=== PATIENT | female | born 1955 | race Caucasian/White ===

== ENCOUNTER 2021-06-19 12:47 | Outpatient (CLI) | payer MEDICARE ==
--- NOTE | 2021-06-19 13:21 | XRAY Report ---
PROCEDURE: Hand 3 View RT INDICATIONS: HAND PAIN, RIGHT TECHNIQUE: 3 views of the hand(s) acquired. COMPARISON: None FINDINGS: Bones: No fractures or dislocations. No suspicious bony lesions. Soft tissues: No suspicious soft tissue calcifications. 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 A small accessory ossicle or old avulsion fragment is incidentally noted at the radial bor janie of the trapezium, perhaps reflecting old trauma in that area. Reviewed by: Rell Pastrana MD on 06/19/2021 1:19 PM PDT Approved by: Rell Pastrana MD on 06/19/2021 1:19 PM PDT Station ID: [id number]
== END 2021-06-19 23:59 | disposition home or self-care (01) ==
LOC: DI.N 12:47
PROVIDERS: ATTEND Family Medicine
DX: M19.041 Primary osteoarthritis, right hand (principal)

== ENCOUNTER 2022-08-27 08:00 | Outpatient (CLI) | payer MEDICARE ==
[2022-08-27 17:37] LABS: HCT - HEMATOCRIT 38.7 % (37.0-47.0); HGB - HEMOGLOBIN 12.4 g/dL (12.0-16.0); MEAN CORPUSCULAR HEMOGLOBIN 31.4 pg (27.0-31.0); MEAN PLATELET VOLUME 9.7 fL (7.9-10.8); RED BLOOD COUNT 3.95 10^6/uL (4.20-5.40); RED CELL DISTRIBUTION WIDTH 13.4 % (12.0-15.0); WHITE BLOOD COUNT 5.6 x10^3/uL (4.8-10.8)
[2022-08-27 18:10] LABS: ALBUMIN 3.9 g/dL (3.2-5.5); ALBUMIN/GLOBULIN RATIO 1.1 (1.0-2.2); ALKALINE PHOSPHATASE 46 IU/L (42-121); ALT ALANINE AMINOTRANSFERASE 30 IU/L (10-60); AST ASPARTATE AMINOTRANSFERASE 25 IU/L (10-42); BILIRUBIN,TOTAL 0.6 mg/dL (0.2-1.0); BUN - BLOOD UREA NITROGEN 10 mg/dL (6-20); CALCIUM 8.9 mg/dL (8.5-10.3); CARBON DIOXIDE - CO2 28 mmol/L (21-32); CHLORIDE 100 mmol/L (101-111); CHOL/HDL RATIO 5.2 (<4.4); CHOLESTEROL 220 mg/dL; CREATININE 0.5 mg/dL (0.4-1.0); GFR - MDRD 123 (>89); GLUCOSE 98 mg/dL (70-100); HDL CHOLESTEROL 42 mg/dL; LDL CHOLESTEROL,CALCULATED 147 mg/dL; LDL/HDL RATIO 3.5 (<4.4); POTASSIUM 4.2 mmol/L (3.5-5.0); SODIUM 134 mmol/L (135-145); TOTAL PROTEIN 7.3 g/dL (6.7-8.2); TRIGLYCERIDES 157 mg/dL; VLDL CHOLESTEROL 31 mg/dL
[2022-08-27 20:16] LABS: ESTIMATED AVERAGE GLUCOSE 134 mg/dL (70-100); HEMOGLOBIN A1c% 6.3 % (4.27-6.07)
== END 2022-08-27 23:59 | disposition home or self-care (01) ==
LOC: LAB.N 08:00
PROVIDERS: ATTEND Physician Assistant Medical
DX: E11.9 Type 2 diabetes mellitus without complications (principal)
CPT/HCPCS: 36415; 80053; 80061; 83036; 83721; 84443; 85027

== ENCOUNTER 2023-02-24 13:08 | Outpatient (CLI) | payer MEDICARE ==
--- NOTE | 2023-02-24 14:19 | SLEEP CARE CONSULTATION ---
Information from patient questionnaire entered by Lisseth Brown. I have reviewed and concur with the information entered by Lisseth Brown. This document represents the service I personally performed and the decisions made by me, Cecy Jernigan ARNP. History of Present Illness Service Date and Time: 02/24/2023 1308 Reason for Visit: New patient, sleep apnea on CPAP therapy Chief Complaint: reports: Unrefreshed sleep, Snoring, Frequent awakenings at night, Other (UPDATE SUPPLIES) Date of Onset: A WHILE Usual bedtime: 10PM-430AM Time it takes to fall asleep: 5-10MINS Snores at night: Yes Observed to quit breathing while asleep: Yes Number of times waking at night: 1-2 Reasons for waking at night: reports: Snoring, Bathroom Toss, Turn, or Twitch while sleeping: Yes Recalls having dreams: Yes Usually gets out of bed at: 830AM Feels refreshed in the morning: No Morning headache: No Sleepy or fatigued during the day: Yes Ever fallen asleep while driving: No Takes day naps: No Dreams during day naps: No Prior sleep studies: Yes Year and Where: [facility] Additional HPI information: VERONICA THOMASON was previously diagnosed to have unknown, AHI unknown, sleep apnea- hypopnea syndrome and comes in today to establish care for CPAP therapy. - Parasomnia Symptoms Ever been unable to move upon waking from sleep: No Walks in sleep: No Talks in sleep: No Ever acted out dreams in sleep: No Ever felt weak in the knees when startled or emotional: No Bothered by creepy, crawly, restless sensations in legs: No CPAP Compliance Data - Data Reviewed with Patient Average duration of nightly device use: 4 hours 50 minutes Compliance rate %: 57 (78/90 days used) Current pressure setting (cmH2O): 8 Average residual AHI: 0.6 Central apnea: 0.2 Obstructive apnea: 0.3 Average large leak: 0 Compliance data discussion: She has a Resmed Airsense 10 that was set up in 08/2021. She has been getting her supplies from [facility]. She has not been getting supplies since she moved to [place] about 2 years ago. She is using a Resmed Dobbins FX. Subjective Missed days of use due to: reports: mask issues (air leaking into eyes) Patient concerns: reports: air blowing in eyes (she is using a sleeping mask with good results; using eye drops). denies: aerophagia, mask discomfort, mask leak noise, condensation in mask/hose, nasal congestion, dry mouth, nose, throat, epistaxis Observed to snore while using device: No Current pressure setting perceived as: comfortable On therapy, patient: reports: sleeping better, awakening more refreshed, being more awake and alert during the day, more rested overall. denies: drowsiness while driving Initial [place] Sleepiness Scale score: 6 (02-08-23) Past Medical History Past Medical History: reports: Diabetes, GERD, Other (Hypertrophic cardiomyopathy) Social History The patient's occupation is a RE. Patient is / and lives in [place]. Have you smoked in the past 12 months: No Alcohol use: No Caffeine use: Yes Caffeine amount and frequency: ONE A DAY Family History Family history of sleep disordered breathing: Yes Family Hx Sleep Apnea: Mother: Snoring, Father: Snoring Allergies and Home Medications Known drug allergies: Yes (codeine, morphine, penicillin, shellfish derived) Drug allergies reviewed: Yes Home medication list reviewed: Yes (see updated list in EMR) Review of Systems Cardiovascular: reports: irregular heart rate or pulse Gastrointestinal: denies: heartburn Neurological: denies: headaches Psychiatric: denies: anxiety, depression Immunologic: reports: sneezing, allergies to food or environment (nuts, shellfish derived) Physical Exam Vital signs obtained and entered by: LISSETH Ugarte MA Blood Pressure: 128/60 (LEFT ARM) Cuff size: regular Heart Rate: 65 O2 Saturation: 98 Height: 4 ft 11 in Weight: 155 lb 12.8 oz Body Mass Index: 31.4 BMI Classification: Obese Neck circumference: 16.5 Impression and Plan 1. Obstructive Sleep Apnea-Hypopnea Syndrome, unknown, with fair treatment compliance and good apnea control. On CPAP therapy, the patient has better sleep quality and is more rested overall. Patient needs to be set up with a company for her CPAP supplies. She wants to change her mask to a Dreamwear nasal pillows mask, size small. I will add a mask fitting to her DME prescription. For patient supply concerns, I will have my student life coordinator inform of DME options. A DWO prescription will then be made. Patient advised to contact this office if further supply problems. Patient's apnea severity and rationale for treatment to reduce apnea, improve sleep quality and reduce cardiovascular and cerebrovascular events was reviewed. I also reviewed the benefit of consistent device use of CPAP for cardiac disease and diabetes. 2. Obesity, unspecified. Currently patients BMI is 31.4. Obesity increases the risk of apnea, CPAP pressure requirements and overall health risks especially cardiovascular and diabetes. Thus patient is advised to lose weight. * Continue CPAP pressure at 8 cmH2O * Update supplies * Transfer DME * mask fitting for a Dreamwear nasal pillows mask * Notify me if snoring with mask or feeling that the pressure is too much or too little * Attempt to lose weight * Call this office if any problems using CPAP * Return for follow up in 1-2 months, or sooner if concerns arise Counseling Topics: Spare mask, Weight loss health impact Visit Type: In Office Time Spent with Patient (minutes): 38 Provider Statement: I spent 100% of the Face to Face Visit with the patient with greater than 50% spent counseling the patient and coordination of care.
[2023-02-24 14:21] VITALS: BP 128/60
== END 2023-02-24 13:09 | disposition home or self-care (01) ==
LOC: SC 13:08
PROVIDERS: ATTEND Nurse Practitioner Family
DX: G47.33 Obstructive sleep apnea (adult) (pediatric) (principal); E66.9 Obesity, unspecified; Z68.31 Body mass index [BMI] 31.0-31.9, adult
CPT/HCPCS: 99203; G0463; 99212

== ENCOUNTER 2023-04-27 13:07 | Outpatient (CLI) | payer MEDICARE ==
--- NOTE | 2023-04-27 13:44 | Sleep Patient Instructions ---
Sleep Center Visit Summary - Patient Visit Information Reason for Visit: First compliance visit with CPAP therapy - Patient Instructions Additional Instructions: You were here for follow up of CPAP therapy. You will be continued on CPAP therapy with pressure at 8 cmH2O. You should follow up with sleep care in 12 months. You may contact us sooner for any questions or concerns. - Clinic Information Contact: [facility] [address] [place] [address] [email or web address] T: [phone]
--- NOTE | 2023-04-27 13:51 | SLEEP CARE CONSULTATION ---
Information from patient questionnaire entered by Lisseth Brown. I have reviewed and concur with the information entered by Lisseth Brown. This document represents the service I personally performed and the decisions made by me, Cecy Jernigan ARNP. History of Present Illness Service Date and Time: 04/27/2023 1307 Previous diagnosis: Mild, Obstructive Sleep Apnea-Hypopnea Syndrome AHI: 5.3 (in 2013) Reason for follow up: first compliance after device update Equipment type: CPAP (RESMED Airsense 10, s/u 02/2023 SD CARD NEEDED) Equipment obtained from: Other ([facility]; got initial supplies) Mask style: Nasal pillows Mask brand: Respironics (Dreamwear, medium headgear with small pilows cushion) Backup mask available: Yes (old mask) Last cushion change: 1 month Prior sleep studies: Yes Year and Where: [facility] HPI additional information: VERONICA THOMASON was diagnosed to have mild, AHI 5.3, obstructive sleep apnea- hypopnea syndrome and returned today for CPAP therapy two month/first compliance with new device follow-up. Sleep Study - Results Prior sleep studies: Yes Year and Where: [facility] CPAP Compliance Data - Data Reviewed with Patient Average duration of nightly device use: 5 hours 25 minutes Compliance rate %: 76 (40/41 days used) Current pressure setting (cmH2O): 8 Average residual AHI: 1.1 Central apnea: 0.1 Obstructive apnea: 0.7 Average large leak: 0.9 lpm Subjective Missed days of use due to: reports: mask issues Patient concerns: reports: air blowing in eyes, nasal congestion (allergies). denies: aerophagia, mask discomfort, mask leak noise, condensation in mask/hose, dry mouth, nose, throat, epistaxis Observed to snore while using device: Yes (mouth open sometimes with pressure buildup) Current pressure setting perceived as: comfortable On therapy, patient: reports: sleeping better, awakening more refreshed, being more awake and alert during the day, more rested overall. denies: drowsiness wh ile driving Initial [place] Sleepiness Scale score: 6 (02-08-23) Current [place] Sleepiness Scale score: 3 (04/27/23) Allergies and Home Medications Known drug allergies: Yes (as listed) Drug allergies reviewed: Yes Home medication list reviewed: Yes (no changes) Allergy and home medication list: Allergies codeine Allergy (Verified 04/26/23 09:57) morphine Allergy (Verified 04/26/23 09:57) nut - unspecified Allergy (Verified 04/26/23 09:57) Penicillins Allergy (Verified 04/26/23 09:57) shellfish derived Allergy (Verified 04/26/23 09:57) Review of Systems Review of systems same as previous: Yes (no changes) Physical Exam Vital signs obtained and entered by: LISSETH Ugarte MA Blood Pressure: 124/72 (LEFT ARM) Cuff size: regular Heart Rate: 70 O2 Saturation: 97 Height: 4 ft 11 in Weight: 156 lb 12.8 oz Body Mass Index: 31.6 BMI Classification: Obese Impression and Plan 1. Obstructive Sleep Apnea-Hypopnea Syndrome, mild, with good treatment compliance and good apnea control. On CPAP therapy, the patient has better sleep quality and is more rested overall. Patient has significant improvement of their sleep apnea and is satisfied with current CPAP therapy. Patient tells me she has noticed that her blood sugars and heart rate are better with using her new CPAP. She had questions about the fit of her mask and I was able to help her fit her small nasal pillows cushion into the medium headgear and this was more comfortable for her than the small headgear. We will followup with her next year. Patient's apnea severity and rationale for treatment to reduce apnea, improve sleep quality and reduce cardiovascular and cerebrovascular events was reviewed. I also reviewed the benefit of consistent device use of CPAP for diabetes, gastric reflux and cardiac disease. 2. Obesity, unspecified. Currently patients BMI is 31.6. Obesity increases the risk of apnea, CPAP pressure requirements and overall health risks especially cardiovascular and diabetes. Thus patient is advised to lose weight. * Continue CPAP pressure at 8 cmH2O * Notify me if snoring with mask or feeling that the pressure is too much or too little * Attempt to lose weight * Call this office if any problems using CPAP * Return for follow up in 1 year, or sooner if concerns arise Counseling Topics: Spare mask, Weight loss health impact Visit Type: In Office Time Spent with Patient (minutes): 24 Provider Statement: I spent 100% of the Face to Face Visit with the patient with greater than 50% spent counseling the patient and coordination of care.
[2023-04-27 13:54] VITALS: BP 124/72
== END 2023-04-27 13:08 | disposition home or self-care (01) ==
LOC: SC 13:07
PROVIDERS: ATTEND Nurse Practitioner Family
DX: G47.33 Obstructive sleep apnea (adult) (pediatric) (principal); E66.9 Obesity, unspecified; Z68.31 Body mass index [BMI] 31.0-31.9, adult
CPT/HCPCS: 99213; G0463; 99212

== ENCOUNTER 2023-05-20 09:00 | Outpatient (CLI) | payer MEDICARE | END 2023-05-20 09:01 | disposition home or self-care (01) | LOC: DI 09:00 | PROVIDERS: ATTEND Internal Medicine Cardiovascular Disease | DX: I42.2 Other hypertrophic cardiomyopathy (principal) | CPT/HCPCS: 93306 ==

== ENCOUNTER 2023-05-24 11:30 | Outpatient (CLI) | payer MEDICARE ==
--- NOTE | 2023-05-24 16:45 | XRAY Report ---
PROCEDURE: Ankle 3 View RT INDICATIONS: ANKLE JOINT PAIN TECHNIQUE: 3 views of the ankle were acquired. COMPARISON: None. FINDINGS: Bones: No fractures or dislocations. Ankle mortise is normally aligned. No suspicious bony lesions . Soft tissues: No tibiotalar joint effusion. Achilles tendon appears normal. IMPRESSION: No acute fracture. No osseous lesion. If symptoms and/or clinical suspicion for pathology continue, f urther assessment with repeat plain films, or advanced imaging (e.g., CT, MRI, or bone scan) is recom mended for further assessment. Reviewed by: Corona Uriostegui MD on 05/24/2023 4:44 PM PDT Approved by: Corona Uriostegui MD on 05/24/2023 4:44 PM PDT Station ID: [id number]
--- NOTE | 2023-05-24 16:46 | XRAY Report ---
PROCEDURE: Foot 3 View RT INDICATIONS: PAIN IN RIGHT FOOT TECHNIQUE: 3 views of the foot were acquired. COMPARISON: None. FINDINGS: Bones: No fractures or dislocations. No suspicious bony lesions. Soft tissues: No suspicious soft tissue calcifications or masses. IMPRESSION: No acute fracture. No osseous lesion. If symptoms and/or clinical suspicion for pathology continue, f urther assessment with repeat plain films, or advanced imaging (e.g., CT, MRI, or bone scan) is recom mended for further assessment. Reviewed by: Corona Uriostegui MD on 05/24/2023 4:45 PM PDT Approved by: Corona Uriostegui MD on 05/24/2023 4:45 PM PDT Station ID: [id number]
== END 2023-05-24 11:45 | disposition home or self-care (01) ==
LOC: DI.N 11:30
PROVIDERS: ATTEND Registered Nurse
DX: M25.571 Pain in right ankle and joints of right foot (principal); M79.671 Pain in right foot

== ENCOUNTER 2023-07-05 09:13 | Outpatient (CLI) | payer MEDICARE ==
[2023-07-05 09:27] LABS: BASOPHILS # (AUTO) 0.1 10^3/uL (0.0-0.1); BASOPHILS % (AUTO) 1.3 %; EOSINOPHILS # (AUTO) 0.4 10^3/uL (0.0-0.7); EOSINOPHILS % (AUTO) 7.8 %; HCT - HEMATOCRIT 38.5 % (37.0-47.0); LYMPHOCYTES # (AUTO) 2.2 10^3/uL (1.5-3.5); LYMPHOCYTES % (AUTO) 41.7 %; MEAN CORPUSCULAR HEMOGLOBIN 32.3 pg (27.0-31.0); MEAN CORPUSCULAR HGB CONC 33.8 g/dL (32.0-36.0); MEAN CORPUSCULAR VOLUME 95.5 fL (81.0-99.0); MEAN PLATELET VOLUME 8.8 fL (7.9-10.8); MONOCYTES # (AUTO) 0.5 10^3/uL (0.0-1.0); MONOCYTES % (AUTO) 10.2 %; NEUTROPHILS # (AUTO) 2.1 10^3/uL (1.5-6.6); NEUTROPHILS % (AUTO) 38.8 %; PLT - PLATELET COUNT 241 10^3/uL (130-450); RED BLOOD COUNT 4.03 10^6/uL (4.20-5.40); RED CELL DISTRIBUTION WIDTH 13.4 % (12.0-15.0); WHITE BLOOD COUNT 5.3 x10^3/uL (4.8-10.8)
[2023-07-05 09:45] LABS: ALBUMIN 4.3 g/dL (3.2-5.5); ALBUMIN/GLOBULIN RATIO 1.3 (1.0-2.2); ALKALINE PHOSPHATASE 50 IU/L (42-121); ALT ALANINE AMINOTRANSFERASE 54 IU/L (10-60); AST ASPARTATE AMINOTRANSFERASE 36 IU/L (10-42); BILIRUBIN,TOTAL 0.6 mg/dL (0.2-1.0); BUN - BLOOD UREA NITROGEN 9 mg/dL (6-20); CALCIUM 9.7 mg/dL (8.5-10.3); CARBON DIOXIDE - CO2 34 mmol/L (21-32); CHLORIDE 98 mmol/L (101-111); CHOL/HDL RATIO 4.8 (<4.4); CHOLESTEROL 215 mg/dL; CREATININE 0.5 mg/dL (0.6-1.3); GFR - MDRD 122 (>89); GLUCOSE 128 mg/dL (74-104); HDL CHOLESTEROL 45 mg/dL; LDL CHOLESTEROL,CALCULATED 132 mg/dL; LDL/HDL RATIO 2.9 (<4.4); POTASSIUM 3.6 mmol/L (3.5-4.5); SODIUM 136 mmol/L (135-145); TOTAL PROTEIN 7.7 g/dL (6.4-8.9); TRIGLYCERIDES 192 mg/dL (48-352); VLDL CHOLESTEROL 38 mg/dL
[2023-07-05 10:00] LABS: THYROID STIMULATING HORMONE 2.11 uIU/mL (0.34-5.60)
[2023-07-05 10:01] LABS: CREATININE,URINE 154.4 mg/dL; MICROALBUM/CREATININE RATIO,UR 4.5 ug/mg (<30.0); MICROALBUMIN,URINE 0.7 mg/dL
[2023-07-05 10:49] LABS: ESTIMATED AVERAGE GLUCOSE 151 mg/dL (70-100); HEMOGLOBIN A1c% 6.9 % (4.27-6.07)
== END 2023-07-05 09:14 | disposition home or self-care (01) ==
LOC: LAB 09:13
PROVIDERS: ATTEND Physician Assistant
DX: I10 Essential (primary) hypertension (principal); E11.9 Type 2 diabetes mellitus without complications
CPT/HCPCS: 36415; 80053; 80061; 82043; 82570; 83036; 83721; 84443; 85025

== ENCOUNTER 2024-02-02 11:41 | Outpatient (CLI) | payer MEDICARE ==
[2024-02-02 18:00] LABS: BUN - BLOOD UREA NITROGEN 13 mg/dL (6-20); CALCIUM 10.4 mg/dL (8.5-10.3); CARBON DIOXIDE - CO2 33 mmol/L (21-32); CHLORIDE 99 mmol/L (101-111); CHOL/HDL RATIO 4.7 (<4.4); CHOLESTEROL 227 mg/dL; CREATININE 0.6 mg/dL (0.6-1.3); GFR - MDRD 99 (>89); GLUCOSE 121 mg/dL (74-104); HDL CHOLESTEROL 48 mg/dL; LDL CHOLESTEROL,CALCULATED 139 mg/dL; LDL/HDL RATIO 2.9 (<4.4); POTASSIUM 4.2 mmol/L (3.5-4.5); SODIUM 138 mmol/L (135-145); TRIGLYCERIDES 199 mg/dL (48-352); VLDL CHOLESTEROL 40 mg/dL
[2024-02-02 22:34] LABS: ESTIMATED AVERAGE GLUCOSE 143 mg/dL (70-100); HEMOGLOBIN A1c% 6.6 % (4.27-6.07)
== END 2024-02-02 11:42 | disposition home or self-care (01) ==
LOC: LAB.N 11:41
PROVIDERS: ATTEND Physician Assistant
DX: E11.9 Type 2 diabetes mellitus without complications (principal); E78.5 Hyperlipidemia, unspecified
CPT/HCPCS: 36415; 80048; 80061; 83036; 83721

== ENCOUNTER 2024-07-04 10:05 | Outpatient (CLI) | payer MEDICARE ==
--- NOTE | 2024-07-04 10:41 | Sleep Patient Instructions ---
Sleep Center Visit Summary - Patient Visit Information Reason for Visit: Annual follow-up for PAP therapy - Patient Instructions Additional Instructions: You will continue with CPAP therapy with pressure set at 8 cmH2O. A supply prescription will be updated with your DME supplier. We encourage you to continue to try to lose weight. Please follow up with the sleep care office in 1 year. - Clinic Information Contact: [facility] [address] [place] [address] [email or web address] T: [phone]
--- NOTE | 2024-07-04 10:47 | SLEEP CARE CONSULTATION ---
Information from patient questionnaire entered by Lisseth Brown. I have reviewed and concur with the information entered by Lisseth Brown. This document represents the service I personally performed and the decisions made by me, Cecy Jernigan ARNP. History of Present Illness Service Date and Time: 07/04/2024 1005 Previous diagnosis: Mild, Obstructive Sleep Apnea-Hypopnea Syndrome AHI: 5.3 (in 2013) Reason for follow up: annual (LAST SEEN 04/2023) Equipment type: CPAP (RESMED Airsense 10, s/u 02/2023 SD CARD NEEDED) Equipment obtained from: Other ([facility]; getting supplies) Mask style: Nasal pillows Mask brand: Respironics (Dreamwear) Backup mask available: Yes Last cushion change: recently Prior sleep studies: Yes Year and Where: [facility] HPI additional information: VERONICA THOMASON was diagnosed to have mild, AHI 5.3, obstructive sleep apnea- hypopnea syndrome and returned today for CPAP therapy annual follow-up. Sleep Study - Results Prior sleep studies: Yes Year and Where: [facility] CPAP Compliance Data - Data Reviewed with Patient Average duration of nightly device use: 5 hours 3 minutes Compliance rate %: 44 (232/365 days used) Current pressure setting (cmH2O): 8 Average residual AHI: 0.5 Central apnea: 0.1 Obstructive apnea: 0.3 Average large leak: 0.5 L/min Compliance data discussion: We are unable to get her data from her SD card because the website is down. Subjective Missed days of use due to: reports: illness, other (DENTAL WORK) Patient concerns: reports: air blowing in eyes (sometimes). denies: aerophagia, mask discomfort, mask leak noise, condensation in mask/hose, nasal congestion, dry mouth, nose, throat, epistaxis Observed to snore while using device: No Current pressure setting perceived as: comfortable On therapy, patient: reports: sleeping better, awakening more refreshed, being more awake and alert during the day, more rested overall. denies: drowsiness while driving Initial [place] Sleepiness Scale score: 6 (02-08-23) Current [place] Sleepiness Scale score: 5 (07/04/24) Allergies and Home Medications Known drug allergies: Yes (as listed) Drug allergies reviewed: Yes Home medication list reviewed: Yes (no changes) Allergy and home medication list: Allergies codeine Allergy (Verified 07/04/24 10:10) morphine Allergy (Verified 07/04/24 10:10) nut - unspecified Allergy (Verified 07/04/24 10:10) Penicillins Allergy (Verified 07/04/24 10:10) shellfish derived Allergy (Verified 07/04/24 10:10) Review of Systems Review of systems same as previous: Yes (NO CHANGE) Physical Exam Vital signs obtained and entered by: LISSETH townsned MA Blood Pressure: 173/68 (RIGHT ARM) Cuff size: regular Heart Rate: 60 O2 Saturation: 97 Height: 4 ft 11 in Weight: 155 lb 12.8 oz Body Mass Index: 31.4 BMI Classification: Obese Impression and Plan 1. Obstructive Sleep Apnea-Hypopnea Syndrome, mild, with fair treatment compliance and good apnea control. On CPAP therapy, the patient has better sleep quality and is more rested overall. She says she had some dental work done with getting an implant and could not use her CPAP because the mask would put pressure on her surgical site. She is back to using her mask after healing. Her compliance is down and we discussed her increasing her compliance. She voiced understanding and agreement. Patient's apnea severity and rationale for treatment to reduce apnea, improve sleep quality and reduce cardiovascular and cerebrovascular events was reviewed. I also reviewed the benefit of consistent device use of CPAP for diabetes, cardiac disease. 2. Obesity, unspecified. Currently patients BMI is 31.4. Obesity increases the risk of apnea, CPAP pressure requirements and overall health risks especially cardiovascular and diabetes. Thus patient is advised to lose weight. * Continue CPAP pressure at 8 cmH2O * Update supply prescription * Notify me if snoring with mask or feeling that the pressure is too much or too little * Attempt to lose weight * Call this office if any problems using CPAP * Return for follow up in 12 months, or sooner if concerns arise Counseling Topics: Spare mask, Weight loss health impact Prescriptions: Device supplies Follow up with Sleep Care in: 1 year Visit Type: In Office Time Spent with Patient (minutes): 21 Provider Statement: I spent 100% of the Face to Face Visit with the patient with greater than 50% spent counseling the patient and coordination of care.
[2024-07-04 10:57] VITALS: BP 173/68; O2SAT 97
== END 2024-07-04 10:06 | disposition home or self-care (01) ==
LOC: SC 10:05
PROVIDERS: ATTEND Nurse Practitioner Family
DX: G47.33 Obstructive sleep apnea (adult) (pediatric) (principal); E66.9 Obesity, unspecified; Z68.31 Body mass index [BMI] 31.0-31.9, adult
CPT/HCPCS: 99213; G0463; 99212